=== PATIENT | male | born 1985 | race Caucasian/White ===

== ENCOUNTER 2021-07-11 15:33 | Emergency (ER) | payer OTHER ==
[2021-07-11] MEDS ORDERED: Sodium Chloride 0.9% 10 ML Syringe FLUSH PRN (15:38)
[2021-07-11] MEDS ORDERED: Insulin Lispro 100 Unit/ML 3 ML KwikPen SUBCUT STA (15:41)
[2021-07-11] MEDS ORDERED: Glucagon,Human Recombinant 1 MG Vial IM PRN (15:41)
[2021-07-11] MEDS ORDERED: 50% Dextrose in Water 50 ML Syringe IVPUSH PRN (15:41)
[2021-07-11] MEDS ORDERED: Sodium Chloride 0.9% 2,000 ML IV SCH (15:45)
[2021-07-11] MEDS ORDERED: Insulin Lispro 100 Unit/ML 3 ML KwikPen SUBCUT ONE (16:19)
[2021-07-11 16:56] LABS: BASE EXCESS VENOUS,POC 0 mmol/L (-2 - 3+); PCO2 VENOUS,POC 48 mmHg (41-51); PH VENOUS,POC 7.36 pH Units (7.32-7.43)
--- NOTE | 2021-07-11 17:19 | EDM.PDOC ---
ED HPI GENERAL MEDICAL PROBLEM - General Chief Complaint: Diabetic Complaint Stated Complaint: high blood sugar Time Seen by Provider: 07/11/21 15:40 Source of Information: Reports: Patient, Family History Limitations: Reports: No Limitations - History of Present Illness INITIAL COMMENTS - FREE TEXT/NARRATIVE: Patient is a 35 YO WM who presented to the ED from the [facility] because of an elevated BS off 600. He has polyuria and polydipsia for 4-6 months and also had an unintentional weight loss of 20-25 lbs. There is no nausea,vomiting,or abdominal pain.There is no UTI s/s ,fever, chills, cough and cold. Treatments OIL DIPPER: Reports: Other (see below) Other Treatments OIL DIPPER: labs at clinic - Related Data Allergies Allergy/AdvReac Type Severity Reaction Status Date / Time Sulfa (Sulfonamide Allergy Difficulty Verified 07/11/21 15:49 Antibiotics) Breathing Home Meds: Home Meds NK [No Known Home Meds] 07/11/21 [History] Social & Family History - Tobacco Use Tobacco Use Status *Q: Never Tobacco User - Caffeine Use Caffeine Use: Reports: Energy Drinks, Soda - Recreational Drug Use Recreational Drug Use: No ED ROS GENERAL - Review of Systems Review Of Systems: See Below Constitutional: Reports: No Symptoms HEENT: Reports: No Symptoms Respiratory: Reports: No Symptoms Cardiovascular: Reports: No Symptoms Endocrine: Reports: High Glucose, Polydypsia, Polyuria GI/Abdominal: Reports: No Symptoms : Reports: No Symptoms Musculoskeletal: Reports: No Symptoms Skin: Reports: No Symptoms Neurological: Reports: No Symptoms Psychiatric: Reports: No Symptoms ED EXAM GENERAL NO PERIP PULSE - Physical Exam Exam: See Below Exam Limited By: No Limitations General Appearance: Alert, No Apparent Distress Ears: Normal External Exam, Normal Canal Nose: Normal Inspection, Normal Mucosa, No Blood Throat/Mouth: Normal Inspection, Normal Lips, Normal Gums Head: Atraumatic, Normocephalic Neck: Normal Inspection, Supple, Non-Tender, Full Range of Motion Respiratory/Chest: No Respiratory Distress, Lungs Clear, Normal Breath Sounds, No Accessory Muscle Use, Chest Non-Tender Cardiovascular: Normal Peripheral Pulses, Regular Rate, Rhythm, No Edema, No Gallop GI/Abdominal: Normal Bowel Sounds, Soft, Non-Tender, No Organomegaly, No Distention, No Abnormal Bruit Back Exam: Normal Inspection, Full Range of Motion Extremities: Normal Inspection, Normal Range of Motion Neurological: Alert, Oriented, CN II-XII Intact, Normal Cognition Course - Vital Signs Text/Narrative:: Lab result was reviewed and discussed with patient NS 2 L bolus Lispro 30 U SC x1 Anti MELINDA and [id number] Last Recorded V/S: Last Vital Signs Temp 36.2 C 07/11/21 15:33 Pulse 89 07/11/21 15:33 Resp 18 07/11/21 15:33 BP 144/93 H 07/11/21 15:33 Pulse Ox 97 07/11/21 15:33 - Orders/Labs/Meds Orders: Active Orders 24 hr Category Date Time Status EKG Documentation Completion [RC] ASDIRECTED Care 07/11/21 15:40 Active C-PEPTIDE, SERUM Stat Lab 07/11/21 16:05 Received MELINDA-65 AUTOANTIBODY Routine Lab 07/11/21 16:05 Received UA W/MICROSCOPIC [URIN] Stat Lab 07/11/21 17:27 Received Dextrose 50% in Water Med 07/11/21 15:41 Active 50 ml IVPUSH ASDIRECTED PRN Glucagon,Human Recombinant [GlucaGen] Med 07/11/21 15:41 Active 1 mg IM ASDIRECTED PRN Sodium Chloride 0.9% [Normal Saline] 2,000 ml Med 07/11/21 15:45 Active IV ASDIRECTED Sodium Chloride 0.9% [Saline Flush] Med 07/11/21 15:38 Active 10 ml FLUSH ASDIRECTED PRN Saline Lock Insert [OM.PC] Routine Oth 07/11/21 15:38 Ordered EKG 12 Lead [EK] Routine Ther 07/11/21 15:38 Ordered Medication Orders Dextrose/Water (50% Dextrose In Water 50 Ml Syringe) 50 ml IVPUSH ASDIRECTED PRN PRN Reason: Hypoglycemia Glucagon (Glucagon,Human Recombinant 1 Mg Vial) 1 mg IM ASDIRECTED PRN PRN Reason: Hypoglycemia Sodium Chloride (Normal Saline) 2,000 mls @ 999 mls/hr IV ASDIRECTED ARON Last Admin: 07/11/21 16:31 Dose: 999 mls/hr Documented by: NICHOL Sodium Chloride (Sodium Chloride 0.9% 10 Ml Syringe) 10 ml FLUSH ASDIRECTED PRN PRN Reason: Keep Vein Open Labs: Laboratory Tests 01/01/2307/11/21 07/11/21 Range/Units 16:05 16:05 16:05 WBC 6.8 (3.2-10.1) x10-3/uL RBC 5.78 (3.90-5.90) x10(6)uL Hgb 17.0 (12.9-17.7) g/dL Hct 51.0 H (38.3-50.1) % MCV 88.4 (80.8-98.7) fL MCH 29.4 (27.0-33.3) pg MCHC 33.2 (28.7-35.3) g/dL RDW 12.6 (12.4-15.0) % Plt Count 178 (117-477) x10(3)uL MPV 9.9 (6.7-11.0) fL Neut % (Auto) 57.9 (40.3-71.8) % Lymph % (Auto) 31.5 (15.8-45.3) % Williams % (Auto) 7.5 (5.5-15.2) % Eos % (Auto) 2.2 (0.1-6.8) % Baso % (Auto) 0.9 (0.3-3.8) % Neut # (Auto) 4.0 (1.7-6.9) x10-3/uL Lymph # (Auto) 2.1 (0.5-4.5) x10-3/uL Williams # (Auto) 0.5 (0.0-1.2) x10-3/uL Eos # (Auto) 0.1 (0.0-0.6) x10-3/uL Baso # (Auto) 0.1 (0.0-0.3) x10-3/uL POC VBG pH (7.32-7.43) pH Units POC VBG pCO2 (41-51) mmHg POC VBG HCO3 (22-29) mmol/L VBG Base Excess (-2 - 3+) mmol/L O2 Delivery Device Oxygen Flow Rate LPM Sodium 131 L (135-145) mmol/L Potassium 4.4 (3.5-5.3) mmol/L Chloride 95 L (100-110) mmol/L Carbon Dioxide 26 (21-32) mmol/L BUN 25 H (7-18) mg/dL Creatinine 1.2 (0.70-1.30) mg/dL Est Cr Clr Drug Dosing 82.33 mL/min Estimated GFR (MDRD) > 60 (>60) BUN/Creatinine Ratio 20.8 H (9-20) Glucose 520 H* (80-116) mg/dL POC Glucose (80-116) mg/dL Calcium 9.0 (8.6-10.2) mg/dL Total Bilirubin 0.6 (0.1-1.3) mg/dL AST 21 (5-25) IU/L ALT 67 H (12-36) U/L Alkaline Phosphatase 97 (56-112) IU/L Troponin I 4.3 (4.0-60.3) pg/mL Total Protein 8.0 (6.0-8.0) g/dL Albumin 4.0 (3.5-5.2) g/dL Globulin 4.0 g/dL Albumin/Globulin Ratio 1.0 07/11/21 07/11/21 07/11/21 Range/Units 16:33 17:45 17:55 WBC (3.2-10.1) x10-3/uL RBC (3.90-5.90) x10(6)uL Hgb (12.9-17.7) g/dL Hct (38.3-50.1) % MCV (80.8-98.7) fL MCH (27.0-33.3) pg MCHC (28.7-35.3) g/dL RDW (12.4-15.0) % Plt Count (117-477) x10(3)uL MPV (6.7-11.0) fL Neut % (Auto) (40.3-71.8) % Lymph % (Auto) (15.8-45.3) % Williams % (Auto) (5.5-15.2) % Eos % (Auto) (0.1-6.8) % Baso % (Auto) (0.3-3.8) % Neut # (Auto) (1.7-6.9) x10-3/uL Lymph # (Auto) (0.5-4.5) x10-3/uL Williams # (Auto) (0.0-1.2) x10-3/uL Eos # (Auto) (0.0-0.6) x10-3/uL Baso # (Auto) (0.0-0.3) x10-3/uL POC VBG pH 7.36 (7.32-7.43) pH Units POC VBG pCO2 48 (41-51) mmHg POC VBG HCO3 27 (22-29) mmol/L VBG Base Excess 0 (-2 - 3+) mmol/L O2 Delivery Device Room air Oxygen Flow Rate 0 LPM Sodium (135-145) mmol/L Potassium (3.5-5.3) mmol/L Chloride (100-110) mmol/L Carbon Dioxide (21-32) mmol/L BUN (7-18) mg/dL Creatinine (0.70-1.30) mg/dL Est Cr Clr Drug Dosing mL/min Estimated GFR (MDRD) (>60) BUN/Creatinine Ratio (9-20) Glucose 371 H D (80-116) mg/dL POC Glucose 414 H* (80-116) mg/dL Calcium (8.6-10.2) mg/dL Total Bilirubin (0.1-1.3) mg/dL AST (5-25) IU/L ALT (12-36) U/L Alkaline Phosphatase (56-112) IU/L Troponin I (4.0-60.3) pg/mL Total Protein (6.0-8.0) g/dL Albumin (3.5-5.2) g/dL Globulin g/dL Albumin/Globulin Ratio Meds: Medications Generic Name Dose Route Start Last Admin Trade Name Marjan PRN Reason Stop Dose Admin Dextrose/Water 50 ml 07/11/21 15:41 50% Dextrose In Water 50 Ml Syringe IVPUSH ASDIRECTED PRN Hypoglycemia Glucagon 1 mg 07/11/21 15:41 Glucagon,Human Recombinant 1 Mg Vial IM ASDIRECTED PRN Hypoglycemia Sodium Chloride 2,000 mls @ 999 mls/hr 07/11/21 15:45 07/11/21 16:31 Normal Saline IV 999 mls/hr ASDIRECTED ARON Administration Sodium Chloride 10 ml 07/11/21 15:38 Sodium Chloride 0.9% 10 Ml Syringe FLUSH ASDIRECTED PRN Keep Vein Open Discontinued Medications Generic Name Dose Route Start Last Admin Trade Name Frefranko PRN Reason Stop Dose Admin Insulin Human Lispro 20 unit 07/11/21 15:41 07/11/21 16:21 Insulin Lispro 100 Unit/Ml 3 Ml Kwikpen SUBCUT 07/11/21 15:42 20 unit NOW STA Administration Departure - Departure Time of Disposition: 19:30 Disposition: Home, Self-Care 01 Condition: Good Clinical Impression: Diabetes mellitus, new onset, Hyperglycemia - Discharge Information Instructions: Hyperglycemia, [id number], Blood Glucose Monitoring, Adult, Diabetes Mellitus Action Plan Referrals: PCP,None [Primary Care Provider] - Forms: ED Department Discharge Additional Instructions: Please read discharge instructions on diabetes Melittus and high blood sugar Low carb diet Read the list of food, beverages and fruits with ;low glycemic index that I discussed with you Semglee insulin 10 U subcutaneous at bed time Follow up with your doctor this week Sepsis Event Note (ED) - Evaluation Sepsis Screening Result: No Definite Risk - Focused Exam Vital Signs: Vital Signs Temp Pulse Resp BP Pulse Ox 07/11/21 15:33 36.2 C 89 18 144/93 H 97 - My Orders Last 24 Hours: My Active Orders 07/11/21 15:38 Sodium Chloride 0.9% [Saline Flush] 10 ml FLUSH ASDIRECTED PRN Saline Lock Insert [OM.PC] Routine EKG 12 Lead [EK] Routine 07/11/21 15:40 EKG Documentation Completion [RC] ASDIRECTED 07/11/21 15:41 Dextrose 50% in Water 50 ml IVPUSH ASDIRECTED PRN Glucagon,Human Recombinant [GlucaGen] 1 mg IM ASDIRECTED PRN 07/11/21 15:45 Sodium Chloride 0.9% [Normal Saline] 2,000 ml IV ASDIRECTED 07/11/21 16:05 C-PEPTIDE, SERUM Stat MELINDA-65 AUTOANTIBODY Routine 07/11/21 17:27 UA W/MICROSCOPIC [URIN] Stat - Assessment/Plan Last 24 Hours: My Active Orders 07/11/21 15:38 Sodium Chloride 0.9% [Saline Flush] 10 ml FLUSH ASDIRECTED PRN Saline Lock Insert [OM.PC] Routine EKG 12 Lead [EK] Routine 07/11/21 15:40 EKG Documentation Completion [RC] ASDIRECTED 07/11/21 15:41 Dextrose 50% in Water 50 ml IVPUSH ASDIRECTED PRN Glucagon,Human Recombinant [GlucaGen] 1 mg IM ASDIRECTED PRN 07/11/21 15:45 Sodium Chloride 0.9% [Normal Saline] 2,000 ml IV ASDIRECTED 07/11/21 16:05 C-PEPTIDE, SERUM Stat MELINDA-65 AUTOANTIBODY Routine 07/11/21 17:27 UA W/MICROSCOPIC [URIN] Stat
[2021-07-11] MEDS ORDERED: Insulin Glargine,Hum.Rec.Anlog 100 UNIT/ML 3 ML Pen SUBCUT STA (18:58)
[2021-07-11] MEDS ORDERED: Insulin Glargine,Hum.Rec.Anlog 100 UNIT/ML 3 ML Pen SUBCUT ONE (19:03)
--- NOTE | 2021-07-11 19:38 | PCM.EKG ---
#1 Interpretation EKG Date: 07/11/21 Time: 17:16 Rhythm: NSR Rate (Beats/Min): 68 Randolph: Normal P-Wave: Present QRS: Normal ST-T: Normal QT: Normal MD/PQ Interval: 155 Comparison: NA - No Prior EKG EKG Interpretation Comments: NSR
== END 2021-07-11 19:10 | disposition home or self-care (01) ==
LOC: FB.ED 15:33
DX: E11.65 Type 2 diabetes mellitus with hyperglycemia (principal); Z88.2 Allergy status to sulfonamides
CPT/HCPCS: 36415; 80053; 81001; 82947; 83516; 84484; 84681; 85025; 93005; 99285-25; A9270-GY; J1815; J7030